=== PATIENT | female | born 1990 | race Hispanic/Latino ===

== ENCOUNTER 2018-11-11 01:51 | Emergency (ER) | payer OTHER ==
[2018-11-11 02:12] LABS: APPEARANCE,URINE CLOUDY (CLEAR); BILIRUBIN,URINE SMALL (NEGATIVE); COLOR,URINE YELLOW (YELLOW); GLUCOSE, URINE (UA) NEGATIVE (NEGATIVE); KETONES,URINE >=80 mg/dL (NEGATIVE); LEUKOCYTE ESTERASE ,URINE MODERATE (NEGATIVE); NITRATE,URINE NEGATIVE (NEGATIVE); OCCULT BLOOD,URINE LARGE (NEGATIVE); PH,URINE 5.5 (5.0-8.0); PROTEIN,URINE 100 mg/dL (NEGATIVE); UROBILINOGEN,URINE 0.2 mg/dL (0.2-1.0)
[2018-11-11 02:14] LABS: HCG,QUAL RESULT NEGATIVE (NEGATIVE)
[2018-11-11 02:20] LABS: WBC,URINE TNTC /HPF (0-1)
[2018-11-11 02:21] LABS: BACTERIA,URINE Moderate /HPF (None Seen); SQUAMOUS EPITHELIAL CELL,UR 0-2 /HPF (0-2)
[2018-11-11] MEDS ORDERED: LIDOCAINE HCL-MPF 1% 2ML VIAL ONE (02:39)
[2018-11-11] MEDS ORDERED: CEFTRIAXONE SODIUM 1 GM ONE (02:39)
[2018-11-11] MEDS ORDERED: PHENAZOPYRIDINE HCL 200 MG TABLET ONE (02:44)
== END 2018-11-11 03:09 ==
LOC: EDH 01:51
DX: N30.01 Acute cystitis with hematuria (principal)
CPT/HCPCS: 81001; 81025; 96372; 99284; J0696; J3490